=== PATIENT | male | born 1995 | race Two or more races ===

== ENCOUNTER 2017-11-23 19:20 | Emergency (ER) | payer MEDICAID ==
--- NOTE | 2017-11-23 19:28 | CPEKG ---
Heart Rate: 98 RR Interval: 612 P-R Interval: 220 QRSD Interval: 110 QT Interval: 348 QTC Interval: 445 P Ern[place]: 7 QRS Ernul: -12 T Wave Ernul: 26 EKG Severity - ABNORMAL ECG - EKG Impression: SINUS RHYTHM EKG Impression: FIRST DEGREE AV BLOCK EKG Impression: NONSPECIFIC INTRAVENTRICULAR CONDUCTION DELAY EKG Impression: PROBABLE LEFT VENTRICULAR HYPERTROPHY Electronically Signed By: Santa Bowman 23-Nov-2017 22:12:15
[2017-11-23] MEDS ORDERED: NS 1,000 ML IV ONE (19:29)
--- NOTE | 2017-11-23 19:32 | EDPHY ---
HPI/HX/ROS/PE/MDM Narrative: CHIEF COMPLAINT: Heart pounding after meth use HISTORY OF PRESENT ILLNESS: The patient is a 22 y/o male with a history of acid reflux complaining of pounding heart after using meth last night and today. He began using meth last night and snorted some several times since then. He denies taking any other drugs or consuming alcohol. About an hour ago, he began feeling a tightness in his chest and like his heart was pounding. EMS gave him versed en route. He reports feeling like his chest is weird but not tight. He denies history of coronary artery disease, hypertension, kidney disease, liver disease, or other significant past medical history. No fever, chills, shortness of breath, vomiting, diarrhea, urinary complaints, headache, lightheadedness. REVIEW OF SYSTEMS: Aside from elements discussed in the HPI, a comprehensive 10-point review of systems was reviewed and is negative. PAST MEDICAL HISTORY: Acid reflux SOCIAL HISTORY: Lives in [place], medicaid patient, smoker VITAL SIGNS: Reviewed by me GENERAL: Diaphoretic. Overweight, resting comfortably in no respiratory distress. HEENT: Atraumatic. Eyes: No icterus, no injection. Mouth: moist mucous membranes. No erythema or lesions. Neck: supple with no adenopathy. LUNGS: Clear to auscultation bilaterally, no wheezes, rhonchi or rales. CARDIAC: Tachycardic regular rate and rhythm, no rubs, murmurs or gallops. ABDOMEN: Soft, nontender, nondistended, bowel sounds normal. BACK: No CVA tenderness. EXTREMITIES: No trauma. No edema. Range of motion is normal throughout. NEURO: Alert and oriented, grossly nonfocal. SKIN: Warm and dry, no rash. PSYCHIATRIC: Normal mentation, no agitation. ED Course: 12-LEAD EKG: Please see the full report in [facility]. My interpretation: Sinus rhythm, First degree AV block. The patient presents with rapid heart rate and chest tightness after using meth several times since last night. He denies taking any other illicit drugs. On exam he is tachycardic and diaphoretic. EKG shows first degree AV block. Plan for CBC, basic metabolic panel, POC troponin, and 1L NS fluids. Troponin negative. Labs unremarkable. Heart rate diminished with IV fluids. Home with instructions regarding remaining hydrated and avoid illicit drugs. MDM: After history and physical examination, the differential for this patient's presenting complaint was considered, including but not limited to, drug or alcohol effects, drug or alcohol withdrawal, dehydration, anxiety. - Data Points Laboratory Results: Laboratory Results 11/23/17 20:05 11/23/17 20:05 11/23/17 11/23/17 11/23/17 20:09 20:05 20:05 WBC 13.42 10^3/uL H 10^3/uL (3.80-9.50) RBC 5.47 10^6/uL 10^6/uL (4.40-6.38) Hgb 17.1 g/dL g/dL (13.7-17.5) Hct 47.5 % % (40.0-51.0) MCV 86.8 fL fL (81.5-99.8) MCH 31.3 pg pg (27.9-34.1) MCHC 36.0 g/dL g/dL (32.4-36.7) RDW 13.2 % % (11.5-15.2) Plt Count 297 10^3/uL 10^3/uL (150-400) MPV 9.2 fL fL (8.7-11.7) Neut % (Auto) 84.0 % H % (39.3-74.2) Lymph % (Auto) 8.3 % L % (15.0-45.0) [place] % (Auto) 6.9 % % (4.5-13.0) Eos % (Auto) 0.2 % L % (0.6-7.6) Baso % (Auto) 0.2 % L % (0.3-1.7) Nucleat RBC Rel Count 0.0 % % (0.0-0.2) Absolute Neuts (auto) 11.27 10^3/uL H 10^3/uL (1.70-6.50) Absolute Lymphs (auto) 1.11 10^3/uL 10^3/uL (1.00-3.00) Absolute Monos (auto) 0.93 10^3/uL H 10^3/uL (0.30-0.80) Absolute Eos (auto) 0.03 10^3/uL 10^3/uL (0.03-0.40) Absolute Basos (auto) 0.03 10^3/uL 10^3/uL (0.02-0.10) Absolute Nucleated RBC 0.00 10^3/uL 10^3/uL (0-0.01) Immature Gran % 0.4 % % (0.0-1.1) Immature Gran # 0.05 10^3/uL 10^3/uL (0.00-0.10) Sodium 138 mEq/L mEq/L (135-145) Potassium 4.1 mEq/L mEq/L (3.3-5.0) Chloride 99 mEq/L mEq/L (97-110) Carbon Dioxide 23 mEq/l mEq/l (22-31) Anion Gap 16 mEq/L mEq/L (8-16) BUN 14 mg/dL mg/dL (7-23) Creatinine 0.9 mg/dL mg/dL (0.7-1.3) Estimated GFR > 60 Glucose 93 mg/dL mg/dL (70-100) Calcium 10.2 mg/dL mg/dL (8.5-10.4) POC Troponin I 0.00 ng/mL ng/mL (0.00-0.08) Medications Given: Discontinued Medications Sodium Chloride (Ns) 1,000 mls @ 0 mls/hr IV EDNOW ONE; Wide Open PRN Reason: Protocol Stop: 11/23/17 19:30 Last Admin: 11/23/17 19:44 Dose: 1,000 mls Point of Care Test Results: Chemistry 11/23/17 20:09 POC Troponin I 0.00 ng/mL ng/mL (0.00-0.08) General Initial Vital Signs: Initial Vital Signs Temperature (C) 36.8 C 11/23/17 19:23 Heart Rate 96 11/23/17 19:23 Respiratory Rate 18 11/23/17 19:23 Blood Pressure 111/89 H 11/23/17 19:23 O2 Sat (%) 99 11/23/17 19:23 O2 Delivery Mode Room Air Allergies/Adverse Reactions: No Known Allergies Allergy (Verified 11/23/17 19:22) Home Medications: Medication Instructions Recorded NK [No Known Home Meds] 07/31/14 Departure - Departure Disposition: Home, Routine, Self-Care Clinical Impression: Illicit drug use, Tachycardia Condition: Good Instructions: Methamphetamine Abuse (ED), Tachycardia (ED) Additional Instructions: 1. Please do not use illicit drugs. 2. Follow-up with your primary care provider for continued rapid heart rate. 3. Return to the emergency department for worsening of condition. Referrals: NONE *PRIMARY CARE P,. [Primary Care Provider] - As per Instructions [facility],. [Clinic] - As per Instructions Report Scribed for: Santa Bowman Report Scribed by: Lexi Merida Date of Report: 11/23/17 Time of Report: 19:33 Physician Review and Approval Statement: Portions of this note were transcribed by a medical observer. I personally performed a history, physical exam, medical decision making, and confirmed accuracy of information the transcribed note.
[2017-11-23 20:25] LABS: PLATELET COUNT 297 10^3/uL (150-400)
[2017-11-23 21:11] VITALS: BP 136/63
== END 2017-11-23 21:11 | disposition home or self-care (01) ==
DX: R00.0 Tachycardia, unspecified (principal); F19.90 Other psychoactive substance use, unspecified, uncomplicated; E86.9 Volume depletion, unspecified; F17.200 Nicotine dependence, unspecified, uncomplicated
CPT/HCPCS: 84484-PO

== ENCOUNTER 2017-12-08 18:06 | Emergency (ER) | payer MEDICAID, OTHER ==
[2017-12-08] MEDS ORDERED: NS 500 ML IV ONE (18:24)
[2017-12-08] MEDS ORDERED: LORazepam 2 MG/ML INJ IVP ONE (18:25)
--- NOTE | 2017-12-08 18:27 | EDPHY ---
H & P Stated Complaint: tachycardia sob with hyperventilation/anxious (meth 1 month ago) Time Seen by Provider: 12/08/17 18:18 HPI/ROS: CHIEF COMPLAINT: "My heart is pounding" HISTORY OF PRESENT ILLNESS: 22-year-old male complaining of palpitations, hyperventilation, tachycardia, tachypnea for the past 30 min while he was at work. He has previously been seen the ER for similar complaints post methamphetamine abuse. He has not abused methamphetamine in 3 weeks. No cocaine use. No alcohol or drug use. No chest pain. No back pain. No syncope or near syncope. No headache. No abdominal pain or nausea or vomiting REVIEW OF SYSTEMS: A ten point review of systems was performed and is negative with the exception of the items mentioned in the HPI PAST MEDICAL & SURGICAL HISTORY: No pertinent medical or surgical history SOCIAL HISTORY: Last methamphetamine use 3 weeks ago. FAMILY HISTORY: No family history of coagulopathic disorder, premature coronary artery disease or sudden unexplained PHYSICAL EXAM (Prior to examination, patient consented to physical exam, hands were washed and my usual and customary physical exam procedures followed) 1) GENERAL: Well-developed, well-nourished, alert and oriented. Appears anxious. 2) HEAD: Normocephalic, atraumatic 3) HEENT: Pupils equal, round, reactive to light bilaterally. Sclera anicteric. 4) NECK: Full range of motion, no meningeal signs. No carotid bruit 5) LUNGS: Clear auscultation bilaterally, no wheezes, no rhonchi, no retractions. 6) HEART: Regular rate and rhythm, no murmur, no heave, no gallop. 7) ABDOMEN: [No guarding, no rebound, no focal tenderness, negative McBurney's, 8) MUSCULOSKELETAL: Carpal pedal spasms noted Moving all extremities, no focal areas of tenderness, no obvious trauma. No peripheral edema or discoloration. 9) BACK: No CVA tenderness, no midline vertebral tenderness, no fluctuance, no step-off, no obvious trauma, no visual or palpable abnormality. 10) SKIN: No rash, no petechiae. 11) Psychiatric: Patient is oriented X 3, there is no agitation. 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" - Social History Smoking Status: Never smoked Constitutional: Initial Vital Signs Temperature (C) 36.9 C 12/08/17 18:12 Heart Rate 112 H 12/08/17 18:12 Respiratory Rate 24 H 12/08/17 18:12 Blood Pressure 168/128 H 12/08/17 18:12 O2 Sat (%) 99 12/08/17 18:12 O2 Delivery Mode Room Air Allergies/Adverse Reactions: No Known Allergies Allergy (Verified 12/08/17 18:12) Home Medications: Medication Instructions Recorded NK [No Known Home Meds] 07/31/14 Medical Decision Making - Diagnostics Imaging Results: Imaging Impressions Chest X-Ray 12/08/17 18:25 Impression: No significant radiographic abnormality. Specifically, a source for chest pain is not identified. Images reviewed by myself ED Course/Re-evaluation: 7:40 p.m.: Re-evaluation after Ativan, IV fluids, heart rate and respiratory rate have normalized. He is feeling improvement, is smiling at this time. I think that cardiac etiology such as OR, pulmonary etiology such as pulmonary embolus are less than likely in this patient. He has a negative D-dimer which I think adequately excludes pulmonary embolus in this patient whom I have a moderate pretest suspicion for pulmonary embolus. We discussed possibility of acute anxiety reaction. He denies acute methamphetamine or cocaine use. Recommend avoidance of illicit drugs in the future. He feels comfortable being discharged. I saw this patient independently based on established practice protocols. Care of patient under supervision of secondary supervising physician Dr Mccollum - Data Points Laboratory Results: Laboratory Results 12/08/17 18:50 12/08/17 18:50 12/08/17 12/08/17 12/08/17 19:11 18:54 18:50 WBC RBC Hgb Hct MCV MCH MCHC RDW Plt Count MPV Neut % (Auto) Lymph % (Auto) [place] % (Auto) Eos % (Auto) Baso % (Auto) Nucleat RBC Rel Count Absolute Neuts (auto) Absolute Lymphs (auto) Absolute Monos (auto) Absolute Eos (auto) Absolute Basos (auto) Absolute Nucleated RBC Immature Gran % Immature Gran # D-Dimer < 0.27 ug/mLFEU ug/mLFEU (0.00-0.50) Sodium Potassium Chloride Carbon Dioxide Anion Gap BUN Creatinine Estimated GFR Glucose Calcium POC Troponin I Cancelled 0.00 ng/mL ng/mL (0.00-0.08) 12/08/17 12/08/17 18:50 18:50 WBC 9.87 10^3/uL H 10^3/uL (3.80-9.50) RBC 4.99 10^6/uL 10^6/uL (4.40-6.38) Hgb 15.3 g/dL g/dL (13.7-17.5) Hct 43.2 % % (40.0-51.0) MCV 86.6 fL fL (81.5-99.8) MCH 30.7 pg pg (27.9-34.1) MCHC 35.4 g/dL g/dL (32.4-36.7) RDW 13.2 % % (11.5-15.2) Plt Count 280 10^3/uL 10^3/uL (150-400) MPV 9.3 fL fL (8.7-11.7) Neut % (Auto) 68.0 % % (39.3-74.2) Lymph % (Auto) 22.7 % % (15.0-45.0) [place] % (Auto) 7.7 % % (4.5-13.0) Eos % (Auto) 1.1 % % (0.6-7.6) Baso % (Auto) 0.3 % % (0.3-1.7) Nucleat RBC Rel Count 0.0 % % (0.0-0.2) Absolute Neuts (auto) 6.71 10^3/uL H 10^3/uL (1.70-6.50) Absolute Lymphs (auto) 2.24 10^3/uL 10^3/uL (1.00-3.00) Absolute Monos (auto) 0.76 10^3/uL 10^3/uL (0.30-0.80) Absolute Eos (auto) 0.11 10^3/uL 10^3/uL (0.03-0.40) Absolute Basos (auto) 0.03 10^3/uL 10^3/uL (0.02-0.10) Absolute Nucleated RBC 0.00 10^3/uL 10^3/uL (0-0.01) Immature Gran % 0.2 % % (0.0-1.1) Immature Gran # 0.02 10^3/uL 10^3/uL (0.00-0.10) D-Dimer Sodium 139 mEq/L mEq/L (135-145) Potassium 3.7 mEq/L mEq/L (3.3-5.0) Chloride 103 mEq/L mEq/L (97-110) Carbon Dioxide 22 mEq/l mEq/l (22-31) Anion Gap 14 mEq/L mEq/L (8-16) BUN 19 mg/dL mg/dL (7-23) Creatinine 0.8 mg/dL mg/dL (0.7-1.3) Estimated GFR > 60 Glucose 130 mg/dL H mg/dL (70-100) Calcium 9.5 mg/dL mg/dL (8.5-10.4) POC Troponin I Medications Given: Discontinued Medications Sodium Chloride (Ns) 500 mls @ 1,000 mls/hr IV EDNOW ONE PRN Reason: Protocol Stop: 12/08/17 18:53 Last Admin: 12/08/17 19:05 Dose: 500 mls Lorazepam (Ativan Injection) 1 mg IVP EDNOW ONE Stop: 12/08/17 18:26 Last Admin: 12/08/17 19:06 Dose: 1 mg Lorazepam (Ativan 1 Mg Prepack#4) 1 btl TAKEHOME EDNOW ONE Stop: 12/08/17 19:46 Last Admin: 12/08/17 20:01 Dose: 1 btl Point of Care Test Results: Chemistry 12/08/17 12/08/17 19:11 18:54 POC Troponin I Cancelled 0.00 ng/mL ng/mL (0.00-0.08) Departure - Departure Disposition: Home, Routine, Self-Care Clinical Impression: Anxiety Condition: Good Instructions: Lorazepam (By mouth), Anxiety (ED) Additional Instructions: Avoid street drugs in the future. Call 911 if you develop chest pain shortness of breath or any other symptoms that concern you. Referrals: [facility],. [Clinic] - 1-2 days without fail
--- NOTE | 2017-12-08 18:27 | CPEKG ---
Heart Rate: 103 RR Interval: 583 P-R Interval: 208 QRSD Interval: 110 QT Interval: 340 QTC Interval: 445 P [place]: 38 QRS [place]: -33 T Wave [place]: 55 EKG Severity - ABNORMAL ECG - EKG Impression: SINUS TACHYCARDIA EKG Impression: FIRST DEGREE AV BLOCK EKG Impression: NONSPECIFIC INTRAVENTRICULAR CONDUCTION DELAY EKG Impression: LEFT VENTRICULAR HYPERTROPHY Electronically Signed By: Rakan Hillman 10-Dec-2017 07:42:45
[2017-12-08 18:59] LABS: PLATELET COUNT 280 10^3/uL (150-400)
--- NOTE | 2017-12-08 19:20 | CPEKG ---
Heart Rate: 102 RR Interval: 588 P-R Interval: 208 QRSD Interval: 112 QT Interval: 340 QTC Interval: 443 P [place]: 40 QRS [place]: -39 T Wave [place]: 56 EKG Severity - ABNORMAL ECG - EKG Impression: SINUS TACHYCARDIA EKG Impression: FIRST DEGREE AV BLOCK EKG Impression: NONSPECIFIC IVCD WITH LAD EKG Impression: LEFT VENTRICULAR HYPERTROPHY Electronically Signed By: Rakan Hillman 10-Dec-2017 07:42:20
[2017-12-08 19:31] VITALS: BP 134/88
[2017-12-08] MEDS ORDERED: LORAZEPAM 1 MG PREPACK#4 BTL TAKEHOME ONE (19:45)
== END 2017-12-08 20:05 | disposition home or self-care (01) ==
DX: F41.9 Anxiety disorder, unspecified (principal); E86.9 Volume depletion, unspecified
CPT/HCPCS: 84484-PO; 96374; J2060

== ENCOUNTER 2017-12-11 12:42 | Emergency (ER) | payer MEDICAID, OTHER ==
--- NOTE | 2017-12-11 12:58 | EDPHY ---
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, started developed hyperventilation, tachycardia, tachypnea, felt lightheaded. All the symptoms have now resolved. No syncope.. Did not receive benzodiazepines or other medication and route via EMS. He does a prior history of methamphetamine use last used approximately 4 weeks ago, none since. No cocaine use. No alcohol or drug use. No abdominal pain. No headache. No nausea or vomiting. No trauma. PRIMARY CARE PROVIDER: None REVIEW OF SYSTEMS: A ten point review of systems was performed and is negative with the exception of the items mentioned in the HPI PAST MEDICAL & SURGICAL HISTORY: No pertinent medical or surgical history SOCIAL HISTORY:Last used methamphetamine 4 weeks ago. No cocaine use. Works at [employer]. FAMILY HISTORY: no family history of coagulopathic disorder, premature coronary artery disease or sudden unexplained PHYSICAL EXAM (Prior to examination, patient consented to physical exam, hands were washed and my usual and customary physical exam procedures followed) 1) GENERAL: Well-developed, well-nourished, alert and oriented. Appears anxious. 2) HEAD: Normocephalic, atraumatic 3) HEENT: Pupils equal, round, reactive to light bilaterally. Sclera anicteric. 4) NECK: Full range of motion, no meningeal signs. 5) LUNGS: Clear auscultation bilaterally, no wheezes, no rhonchi, no retractions. 6) HEART: Regular rate and rhythm, no murmur, no heave, no gallop. 7) ABDOMEN: No guarding, no rebound, no focal tenderness, negative McBurney's, negative Hernandez's, negative Rovsing's, negative peritoneal sign, negative Homans no palpable cord 8) MUSCULOSKELETAL: Moving all extremities, no focal areas of tenderness, no obvious trauma. No peripheral edema or discoloration. 9) BACK: No CVA tenderness, no midline vertebral tenderness, no fluctuance, no step-off, no obvious trauma, no visual or palpable abnormality. 10) SKIN: No rash, no petechiae. 11) Psychiatric: Patient is oriented X 3, there is no agitation. DIFFERENTIAL DIAGNOSIS: In no particular order including but limited to acute anxiety reaction, hyperthyroid, cardiac dysrhythmia. (Corey Peña) Constitutional: Initial Vital Signs Temperature (C) 36.7 C 12/11/17 12:53 Heart Rate 71 12/11/17 12:53 Respiratory Rate 16 12/11/17 12:53 Blood Pressure 117/68 12/11/17 12:53 O2 Sat (%) 97 12/11/17 12:53 O2 Delivery Mode Room Air Allergies/Adverse Reactions: No Known Allergies Allergy (Verified 12/08/17 18:12) Home Medications: Medication Instructions Recorded NK [No Known Home Meds] 07/31/14 Medical Decision Making - Diagnostics Imaging Results: Imaging Impressions Chest X-Ray 12/11/17 12:55 Impression: Normal. If clinically indicated, consider obtaining a video esophagogram and esophagram to assess for cricopharyngeal spasm or other esophageal abnormality. Imaging Impressions Chest X-Ray 12/11/17 12:55 Impression: Normal. If clinically indicated, consider obtaining a video esophagogram and esophagram to assess for cricopharyngeal spasm or other esophageal abnormality. Images reviewed myself (Corey Peña) ED Course/Re-evaluation: 12:55 p.m.: I have reviewed the patient's old medical records. He has seen by myself in the ER 3 days ago for similar complaints. At that time he had a negative D-dimer. Will hold on obtaining will repeat D-dimer therefore at this time. He is concerned that he may be dehydrated notes that his urine is"clear as water". Will obtain laboratory studies for concerns over possible hyponatremia. Will obtain EKG and chest x-ray. I saw this patient independently based on established practice protocols. Care of patient under supervision of secondary supervising physician Dr Hillman with whom I discussed case and who evaluated patient Re-evaluation with serial exams. Normal sodium. Normal chest x-ray. Normal EKG. Plan will be discharge. Return to ER precautions instructions provided. ( Corey Peña) Other Provider: PHYSICIAN DOCUMENTATION: The patient was evaluated and managed by the Physician Supervisor Backfilling and myself. I have reviewed the chart and agree with the findings and plan of care as documented. In addition, I examined the patient myself at 1310. History confirmed as short of breath and anxiety at work, thought he was dehydrated but did drink about 10 bottles of water. Also complains of bilateral intermittent nosebleeds over the last week but he does pick his nose. Physical findings as follows: Slightly dry mucous membranes, does have excoriation on the septum on both sides without active nose bleeding. Sodium 140. Unlikely to have acute medical or surgical emergent condition. Nosebleed prevention discussed. I am the secondary supervising physician. (Rakan Hillman) - Data Points Laboratory Results: Laboratory Results 12/11/17 12:49 12/11/17 12:49 12/11/17 12/11/17 12/11/17 12:49 12:49 12:49 WBC 9.96 10^3/uL H 10^3/uL (3.80-9.50) RBC 5.58 10^6/uL 10^6/uL (4.40-6.38) Hgb 17.3 g/dL g/dL (13.7-17.5) Hct 47.9 % % (40.0-51.0) MCV 85.8 fL fL (81.5-99.8) MCH 31.0 pg pg (27.9-34.1) MCHC 36.1 g/dL g/dL (32.4-36.7) RDW 12.9 % % (11.5-15.2) Plt Count 313 10^3/uL 10^3/uL (150-400) MPV 9.4 fL fL (8.7-11.7) Neut % (Auto) 72.5 % % (39.3-74.2) Lymph % (Auto) 20.2 % % (15.0-45.0) Rich % (Auto) 6.3 % % (4.5-13.0) Eos % (Auto) 0.4 % L % (0.6-7.6) Baso % (Auto) 0.3 % % (0.3-1.7) Nucleat RBC Rel Count 0.0 % % (0.0-0.2) Absolute Neuts (auto) 7.22 10^3/uL H 10^3/uL (1.70-6.50) Absolute Lymphs (auto) 2.01 10^3/uL 10^3/uL (1.00-3.00) Absolute Monos (auto) 0.63 10^3/uL 10^3/uL (0.30-0.80) Absolute Eos (auto) 0.04 10^3/uL 10^3/uL (0.03-0.40) Absolute Basos (auto) 0.03 10^3/uL 10^3/uL (0.02-0.10) Absolute Nucleated RBC 0.00 10^3/uL 10^3/uL (0-0.01) Immature Gran % 0.3 % % (0.0-1.1) Immature Gran # 0.03 10^3/uL 10^3/uL (0.00-0.10) Sodium 140 mEq/L mEq/L (135-145) Potassium 4.2 mEq/L mEq/L (3.3-5.0) Chloride 101 mEq/L mEq/L (97-110) Carbon Dioxide 22 mEq/l mEq/l (22-31) Anion Gap 17 mEq/L H mEq/L (8-16) BUN 13 mg/dL mg/dL (7-23) Creatinine 0.8 mg/dL mg/dL (0.7-1.3) Estimated GFR > 60 Glucose 74 mg/dL mg/dL (70-100) Calcium 10.3 mg/dL mg/dL (8.5-10.4) Troponin I < 0.012 ng/mL ng/mL (0.000-0.034) Departure - Departure Disposition: Home, Routine, Self-Care Clinical Impression: Anxiety Condition: Good Instructions: Anxiety (ED) Additional Instructions: Return to the ER if you develop chest pain, shortness of breath, or any other symptoms that concern you. Referrals: [facility],. [Clinic] - 1-2 days without fail
[2017-12-11 13:03] LABS: PLATELET COUNT 313 10^3/uL (150-400)
--- NOTE | 2017-12-11 13:10 | CPEKG ---
Heart Rate: 69 RR Interval: 870 P-R Interval: 196 QRSD Interval: 112 QT Interval: 388 QTC Interval: 416 P [place]: 17 QRS [place]: -26 T Wave [place]: 8 EKG Severity - ABNORMAL ECG - EKG Impression: SINUS RHYTHM EKG Impression: NONSPECIFIC INTRAVENTRICULAR CONDUCTION DELAY EKG Impression: PROBABLE LEFT VENTRICULAR HYPERTROPHY Electronically Signed By: Rakan Hillman 11-Dec-2017 15:00:55
[2017-12-11 13:47] VITALS: BP 124/75
== END 2017-12-11 13:47 | disposition home or self-care (01) ==
LOC: EDUNIT#
DX: F41.9 Anxiety disorder, unspecified (principal)

== ENCOUNTER 2018-05-19 15:25 | Emergency (ER) | payer MEDICAID ==
[2018-05-19] MEDS ORDERED: LORazepam 2 MG/ML INJ IVP ONE (15:32)
--- NOTE | 2018-05-19 15:35 | EDPHY ---
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 Called 911 because he was feeling "weird". He has had similar emergency department visits for complaints of palpitations, anxiety. He has been sober from methamphetamine for 7 months but does note that he was at a democrat last evening or multiple individuals were smoking methamphetamine. Positive alcohol use last evening, 40 oz of beer. He denies chest pain. He denies abdominal pain. Denies hallucination. Denies suicidal or homicidal ideation. Denies cocaine use. REVIEW OF SYSTEMS: 10 systems reviewed and negative with the exception of the elements mentioned in the history of present illness PAST MEDICAL & SURGICAL HISTORY: Polysubstance abuse history SOCIAL HISTORY:Positive alcohol use last evening. Denies cocaine use. Last methamphetamine 7 months ago. FAMILY HISTORY: No family history of premature coronary artery disease, vasculopathy or unexpected unexplained . PHYSICAL EXAM (Prior to examination, patient consented to physical exam, hands were washed and my usual and customary physical exam procedures followed) 1) GENERAL: Well-developed, well-nourished, alert and oriented. Appears to be in no acute distress. 2) HEAD: Normocephalic, atraumatic 3) HEENT: Pupils equal, round, reactive to light bilaterally. Sclera anicteric. Nasopharynx, oropharynx, clear, no lesions. MoistDry mucous membranes. Ears bilaterally with normal tympanic membranes. 4) NECK: Full range of motion, no meningeal signs. 5) LUNGS: Clear auscultation bilaterally, no wheezes, no rhonchi, no retractions. 6) HEART: Regular rate and rhythm, no murmur, no heave, no gallop. 7) ABDOMEN: No guarding, no rebound, no focal tenderness, negative McBurney's, negative Hernandez's, negative Rovsing's, negative peritoneal sign, 8) MUSCULOSKELETAL: Moving all extremities, no focal areas of tenderness, no obvious trauma. No peripheral edema or discoloration. 9) BACK: No CVA tenderness, no midline vertebral tenderness, no fluctuance, no step-off, no obvious trauma, no visual or palpable abnormality. 10) SKIN: No rash, no petechiae. 11) Psychiatric: Patient is oriented X 3, there is no agitation. DIFFERENTIAL DIAGNOSIS: In no particular order include but limited to acute anxiety, acute alcohol withdrawal, polysubstance abuse (Corey Peña) Constitutional: Initial Vital Signs Temperature (C) 36.5 C 05/19/18 15:27 Heart Rate 84 05/19/18 15:27 Respiratory Rate 18 05/19/18 15:27 Blood Pressure 144/102 H 05/19/18 15:27 O2 Sat (%) 94 05/19/18 15:27 O2 Delivery Mode Room Air Allergies/Adverse Reactions: No Known Allergies Allergy (Verified 01/17/18 23:01) Home Medications: Medication Instructions Recorded NK [No Known Home Meds] 07/31/14 Medical Decision Making - Diagnostics Imaging Results: Images reviewed myself (Corey Peña) ED Course/Re-evaluation: I did not see this patient while he was in the emergency department. However his care was discussed with the PA while the patient was in the department. I agree with treatment plan and management (Javier العلي) 3:35 p.m.: I reviewed the patient's old medical records. Will obtain EKG, chest x-ray administer IV Ativan. We discussed possibility of polysubstance abuse, possibility of acute alcohol withdrawal. Doubt delirium tremens. Care of patient under supervision of secondary supervising physician Dr العلي with whom I discussed case. Re-evaluation, feeling improvement after IV Ativan and rest in the ER. We discussed possible etiologies for symptoms. Doubt WI, doubt PE, doubt pneumothorax. Plan will be discharge home. Recommend he avoid using methamphetamine or being around individuals using methamphetamine or other illicit drugs. (Casey,D Beronica) - Data Points Medications Given: Discontinued Medications Lorazepam (Ativan Injection) 1 mg IVP EDNOW ONE Stop: 05/19/18 15:33 Last Admin: 05/19/18 15:36 Dose: 1 mg Departure - Departure Disposition: Home, Routine, Self-Care Clinical Impression: Alcohol abuse, Methamphetamine abuse Condition: Good Instructions: Methamphetamine (By mouth) Additional Instructions: Do not use or be around other people using methamphetamine or illicit drugs. Use moderation with alcohol use. Referrals: [facility],. [Clinic] - 2-3 days, call for appt.
[2018-05-19 16:28] VITALS: BP 123/106
--- NOTE | 2018-05-20 21:15 | CPEKG ---
Test Reason : OPEN Blood Pressure : / mmHG Vent. Rate : 081 BPM Atrial Rate : 080 BPM P-R Int : 199 ms QRS Dur : 100 ms QT Int : 373 ms P-R-T Axes : -15 -31 017 degrees QTc Int : 433 ms Sinus rhythm Inferior infarct, old Borderline ST elevation, anterolateral leads Confirmed by Shira Sánchez ([id number]) on 05/20/2018 9:15:09 PM Referred By: Confirmed By:Shira Sánchez
== END 2018-05-19 16:26 | disposition home or self-care (01) ==
LOC: EDUNIT#
DX: R42 Dizziness and giddiness (principal); F10.10 Alcohol abuse, uncomplicated
CPT/HCPCS: 96374; J2060